=== PATIENT | female | born 1950 | race Caucasian/White ===

== ENCOUNTER → 2019-07-01 14:05 | Outpatient (BNVA) | payer MEDICARE, MEDICAID, SELFPAY | PROVIDERS: Family Provider Family Medicine; PCP Family Medicine; Visit Provider Orthopaedic Surgery | DX: S62.307A Unspecified fracture of fifth metacarpal bone, left hand, initial encounter for closed fracture (principal); X58.XXXA Exposure to other specified factors, initial encounter | CPT/HCPCS: 73130 ==

== ENCOUNTER 2019-07-20 10:11 | Outpatient (CLI) | payer MEDICARE, MEDICAID, SELFPAY ==
--- NOTE | 2019-07-20 10:22 | CT_ITS ---
WS: [id number] CT LUMBAR SPINE TECHNIQUE: Noncontrast CT of the lumbar spine with coronal and sagittal reformatted images. CLINICAL INFORMATION: LUMBAR COMPRESSION FRACTURE, SEQUELA COMPARISON: June 21, 2019 DLP: 1624.[address] scans at [facility] use at least one of these dose optimization techniques: automat ed exposure control; mA and/or kV adjustment per patient size (includes targeted exams where dose is matched to clinical indication); or iterative reconstruction. FINDINGS: Mild lumbar curve. Again seen is the comminuted burst fracture L1 vertebral body with fragmentation i nvolving superior endplate. Mild retropulsion of the posterior superior cortex with moderate central canal stenosis unchanged. Compression at L1 is stable since June 21, 2019 with loss of approximat sarkis 30% vertebral body height. Again seen is extension of the L1 fracture into the left pedicle and posterior elements. Extension i nto the midline lamina and right L1 facet. Stable nondisplaced fracture T12 spinous process. Nondispl aced fractures left 12th rib. Nondisplaced fracture left L1 transverse process. Mild central canal stenosis L3-4. Mild to moderate central canal stenosis L4-L5 and L5-S1 due to disc bulging with facet arthropathy and ligamentum flavum hypertrophy. Stable shallow left pericentral pr otrusion L5-S1 impinges the left S1 nerve root. CT/CT lumbar spine wo con* [id number] IMPRESSION: 1. Again seen is the comminuted burst fracture L1 vertebral body with retropul al posterior superior cortex. Mild to moderate central canal stenosis is unch anged. 2. Loss of approximately 30% vertebral body height at L1 is unchanged. 3. Stable appearing extension of the L1 fracture to the left pedicle and poste rior elements. Unchanged extension into the midline lamina and right L1 facet. 4. Nondisplaced fracture midline T12 spinous process. Nondisplaced fractures l eft 12th rib and bilateral L1 transverse processes with callus formation. 5. Unchanged mild to moderate central canal stenosis L3-L5 due to mild disc bu lging with facet arthropathy and ligament flavum hypertrophy.
== END 2019-07-20 10:12 | disposition home or self-care (01) ==
PROVIDERS: Family Provider Family Medicine; PCP Family Medicine; Visit Provider Licensed Practical Nurse
DX: S32.000A Wedge compression fracture of unspecified lumbar vertebra, initial encounter for closed fracture (principal); S22.089A Unspecified fracture of T11-T12 vertebra, initial encounter for closed fracture; X58.XXXA Exposure to other specified factors, initial encounter; M48.061 Spinal stenosis, lumbar region without neurogenic claudication
CPT/HCPCS: 72131

== ENCOUNTER → 2019-08-03 14:12 | Outpatient (BNVA) | payer MEDICARE, MEDICAID, SELFPAY | PROVIDERS: Family Provider Family Medicine; PCP Family Medicine; Visit Provider Orthopaedic Surgery | DX: S62.397A Other fracture of fifth metacarpal bone, left hand, initial encounter for closed fracture (principal); X58.XXXA Exposure to other specified factors, initial encounter | CPT/HCPCS: 73130 ==

== ENCOUNTER 2019-08-23 12:51 | Outpatient (CLI) | payer MEDICARE, MEDICAID, SELFPAY ==
--- NOTE | 2019-08-23 13:00 | CT_ITS ---
WS: [id number] CT LUMBAR SPINE, noncontrast. HISTORY: Lumbar fracture TECHNIQUE: Contiguous 2.5 mm axial imaging are performed. Sagittal and coronal reformats are submitte d and reviewed. All CT scans at [facility] use at least one of these dose optimization te chniques: automated exposure control; mA and/or kV adjustment per patient size (includes targeted exa ms where dose is matched to clinical indication); or iterative reconstruction. IV contrast: None DLP: 2055.87 mGycm COMPARISON: 07/20/2019 Stable L1 burst fracture with 5.5 mm of retropulsion of posterior superior segment. Mild flattening a nd contact on the ventral thecal sac. Slightly greater on the RIGHT. There is an associated osteophyt e and LEFT paracentral disc protrusion. 30% loss of height of the complex fractures of the L1 vertebr al body and extension into the LEFT pedicle and posterior elements without displacement. Near complet e healing of the midline lamina fracture on the RIGHT and the RIGHT L1 facet fracture. Very difficult to visualize at this time. There is a nondisplaced fracture involving the T12 spinous process which is nearly completely healed. Healing nondisplaced LEFT medial 12th rib fracture. Healing fractures in volving the L1 transverse processes. No new fractures or change in alignment or adverse finding since the prior study. Mild central stenos is at L3-4 is unchanged. Mild to moderate central stenosis at L4-5 and L5-S1 due to disc disease and facet arthropathy and ligamentum flavum hypertrophy. LEFT paracentral disc protrusion at L5-S1 is sta ble with mild encroachment upon the ventral thecal sac and LEFT S1 nerve root. Mild atherosclerosis aorta. CT/CT lumbar spine wo con* [id number] IMPRESSION: 1. Healing burst fracture of L1 with stable 5.5 mm retropulsion of posterior s uperior endplate. 2. 30% L1 burst fracture with mild to moderate central stenosis is unchanged. 3. Healing fractures are again identified involving the T12 spinous process, L 1 LEFT pedicle and posterior elements, LEFT 12th rib and bilateral L1 transvers e process fractures.
== END 2019-08-23 12:52 | disposition home or self-care (01) ==
LOC: RADWPI 13:01
PROVIDERS: Family Provider Family Medicine; PCP Family Medicine; Visit Provider Licensed Practical Nurse
DX: S32.000G Wedge compression fracture of unspecified lumbar vertebra, subsequent encounter for fracture with delayed healing (principal); X58.XXXD Exposure to other specified factors, subsequent encounter; I70.0 Atherosclerosis of aorta
CPT/HCPCS: 72131

== ENCOUNTER 2019-09-02 12:14 | Emergency (ER) | payer MEDICARE, MEDICAID, SELFPAY ==
[2019-09-02 12:25] VITALS: BP 122/73; PULSE 77; RESP 14; TEMP 36.7; O2SAT 96; BMI 25.5
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
[2019-09-02] MEDS: sodium chloride 0.9% 1,000 ML 100 ML IV (12:53)
[2019-09-02] MEDS: ondansetron 2 mg/ML SDV 2 mL 4 MG IVP (12:53)
[2019-09-02 13:06] LABS: Basophils % 0.5 %; Eosinophils # 0.1 10^3/uL (0.0-0.8); Eosinophils % 2.2 %; Hematocrit 40.6 % (37.0-47.0); Hemoglobin 13.1 g/dL (11.5-15.3); Lymphocytes # 1.3 10^3/uL (0.8-4.8); Lymphocytes % 23.3 %; Mean Corpuscular HGB Conc 32.3 g/dL (30.0-36.0); Mean Corpuscular Hemoglobin 26.5 pg (28.0-34.0); Mean Corpuscular Volume 82.2 fL (81-99); Mean Platelet Volume 10.2 fL (7.4-10.4); Monocytes # 0.4 10^3/uL (0.2-0.9); Monocytes % 6.4 %; Neutrophils # 3.7 10^3/uL (1.8-7.7); Neutrophils % 67.2 %; Nucleated Red Blood Cells % 0 %; Platelet Count 201 10^3/cmm (130-400); Red Blood Count 4.94 10^6/uL (4.1-5.3); Red Cell Distribution Width 12.7 % (12.1-15.1); White Blood Count 5.5 10^3/uL (4.0-10.0)
[2019-09-02 13:19] LABS: Alanine Aminotransferase 11 U/L (0-33); Albumin Level 4.2 g/dL (3.5-5.2); Alkaline Phosphatase 67 IU/L (35-105); Anion Gap 14.2 (5-19); Aspartate Amino Transferase 17 U/L (0-32); Blood Urea Nitrogen 13 mg/dL (8-23); Calcium 10.1 mg/dL (8.5-10.5); Carbon Dioxide 28 mmol/L (22-29); Chloride 102 mmol/L (98-107); Globulin 2.8 g/dL (1.3-4.6); Glomerular Filtration Rate 83.2 mL/min (90-130); Glucose 140 mg/dL (65-115); Osmolality Calculated 288 mOsm/kg (285-295); Potassium 4.2 mmol/L (3.5-5.1); Sodium 140 mmol/L (136-145); Total Bilirubin 0.4 mg/dL (0.15-1.2)
[2019-09-02 13:32] LABS: Influenza A by IFA Negative (Negative); Influenza B by IFA Negative (Negative)
[2019-09-02 13:38] VITALS: BP 146/73; PULSE 70; RESP 14; O2SAT 94
[2019-09-02 13:58] LABS: Bilirubin Urine Neg (NEGATIVE); Blood Urine Neg (Negative); Glucose Urine UA Norm (Normal); Ketones Urine Negative (Negative); Leukocyte Esterase Urine Negative (Negative); Nitrate Urine Negative (Negative); Protein Urine Neg (Negative); Urine Appearance SL Hazy (CLEAR); Urine Color Yellow (Yellow); Urobilinogen Urine Norm (Negative); pH Urine 7 (5-7)
[2019-09-02 14:04] LABS: Amorphous Sediment Urine 1+; Bacteria Urine TRACE; Mucus Urine TRACE; RBC Urine RARE /hpf (0-2); Squamous Epithelial Cell Urine 0-4 (0-5); WBC Urine 0-4 /hpf (0-5)
[2019-09-02 14:05] LABS: Add Urine Culture? No; Hyaline Casts Urine 0-4
--- NOTE | 2019-09-02 15:36 | PC.NURSE ---
This nurse spoke with [facility] ([phone]) to set up patient ride. Patient is very agitated and ready to be home. [facility] gave 3 hour window for arrival for transport. This was explained to patient at this time. Reservation #: [id number] Ride Assit #: [phone]
[2019-09-02 16:48] VITALS: BP 128/74; PULSE 76; RESP 16; TEMP 36.5; O2SAT 96
== END 2019-09-02 16:45 | disposition home or self-care (01) ==
PROVIDERS: Emergency Provider Emergency Medicine; Family Provider Family Medicine; PCP Family Medicine
DX: R11.10 Vomiting, unspecified (principal)
CPT/HCPCS: 12345; 36415; 80053; 81001; 85025; 87804; 96361; 96374; 96375; 99283; 99284; A9270; J2405; J7030

== ENCOUNTER 2019-11-10 13:20 | Outpatient (CLI) | payer MEDICARE, MEDICAID, SELFPAY ==
--- NOTE | 2019-11-10 14:00 | CT_ITS ---
WS: [id number] CT LUMBAR SPINE, noncontrast. HISTORY: T12/L1 fracture TECHNIQUE: Contiguous 2.5 mm axial imaging are performed. Sagittal and coronal reformats are submitte d and reviewed. All CT scans at [facility] use at least one of these dose optimization te chniques: automated exposure control; mA and/or kV adjustment per patient size (includes targeted exa ms where dose is matched to clinical indication); or iterative reconstruction. IV contrast: None DLP: 2008.92 mGycm COMPARISON: 08/23/2019 Again noted is the comminuted burst fracture of L1 with retropulsion of the posterior superior endpla te by 4.7 mm. Comminuted fracture extends to the anterior posterior cortex of vertebral body. Approxi mately 30% loss of height. No progression. There is mild encroachment of vertebral body upon the vent ral thecal sac, greatest to the LEFT of midline with no progression. Healing fracture spinous process of T12 is not well visualized and a longer period sclerosis involving the L1 lamina from a healing f racture. L1 LEFT transverse process fractures essentially healed. Healed fracture involving the 12th LEFT rib. Mild central stenosis at L3-4. Moderate central stenosis at L4-5 and L5-S1 due to disc bulging and fa cet and ligamentum flavum arthropathy. Small LEFT paracentral disc protrusion at L5-S1 with encroachm ent upon the LEFT S1 nerve root. Similar to the prior study. Atherosclerosis aorta. CT/CT lumbar spine wo con* [id number] IMPRESSION: 1. L1 burst fracture of 30% with 4.7 mm retropulsion of posterior superior end plate. Stable since the prior study with no progression. 2. L1 fragment with mild encroachment upon the thecal sac similar to the prior study. 3. Multiple previously described fractures are poorly visualized now due to he aling. The T12 spinous process fracture, LEFT 12th rib, L1 LEFT transverse proc ess fracture and the LEFT L1 posterior element fractures are poorly visualized now consistent with healing.
== END 2019-11-10 13:21 | disposition home or self-care (01) ==
LOC: RADWPI 13:26
PROVIDERS: Family Provider Family Medicine; PCP Family Medicine; Visit Provider Licensed Practical Nurse
DX: S32.000A Wedge compression fracture of unspecified lumbar vertebra, initial encounter for closed fracture (principal); S32.011A Stable burst fracture of first lumbar vertebra, initial encounter for closed fracture; X58.XXXA Exposure to other specified factors, initial encounter
CPT/HCPCS: 72131

== ENCOUNTER 2019-12-03 16:00 | Outpatient (CLI) | payer MEDICARE, MEDICAID, SELFPAY ==
[2019-12-03 16:11] LABS: Add Urine Microscopic? NO
[2019-12-03 16:25] LABS: Bilirubin Urine Neg (NEGATIVE); Blood Urine Neg (Negative); Glucose Urine UA Norm (Normal); Ketones Urine Negative (Negative); Leukocyte Esterase Urine Negative (Negative); Nitrate Urine Negative (Negative); Protein Urine Neg (Negative); Specific Gravity, Urine 1.025 (1.005-1.030); Urine Appearance Clear (CLEAR); Urine Color Yellow (Yellow); Urobilinogen Urine 1 mg/dL (Negative); pH Urine 5 (5-7)
[2019-12-03 16:34] LABS: Basophils % 0.6 %; Eosinophils # 0.2 10^3/uL (0.0-0.8); Eosinophils % 2.5 %; Hematocrit 43.4 % (37.0-47.0); Lymphocytes # 1.5 10^3/uL (0.8-4.8); Lymphocytes % 23.5 %; Mean Corpuscular HGB Conc 32.3 g/dL (30.0-36.0); Mean Corpuscular Volume 86.8 fL (81-99); Mean Platelet Volume 10.8 fL (7.4-10.4); Monocytes # 0.3 10^3/uL (0.2-0.9); Monocytes % 5.2 %; Neutrophils # 4.3 10^3/uL (1.8-7.7); Nucleated Red Blood Cells % 0 %; Platelet Count 218 10^3/cmm (130-400); Red Cell Distribution Width 12.7 % (12.1-15.1); White Blood Count 6.4 10^3/uL (4.0-10.0)
[2019-12-03 16:36] LABS: Creatinine Urine, Random 220 mg/dL (28-217)
[2019-12-03 16:42] LABS: Alanine Aminotransferase 12 U/L (0-33); Albumin Level 4.8 g/dL (3.5-5.2); Alkaline Phosphatase 63 IU/L (35-105); Anion Gap 17.3 (5-19); Aspartate Amino Transferase 20 U/L (0-32); Blood Urea Nitrogen 15 mg/dL (8-23); Calcium 10.6 mg/dL (8.5-10.5); Carbon Dioxide 27 mmol/L (22-29); Chloride 102 mmol/L (98-107); Chol HDL Ratio 3.63 mg/dL (0.0-4.40); Cholesterol 189 mg/dL (0-200); Globulin 2.1 g/dL (1.3-4.6); Glomerular Filtration Rate 62.3 mL/min (90-130); Glucose 131 mg/dL (65-115); HDL Cholesterol 52 mg/dL (60-100); LDL Cholesterol Calculated 111 mg/dL (50-129); LDL HDL Ratio 2.13 RATIO (0.00-3.22); Osmolality Calculated 292 mOsm/kg (285-295); Potassium 4.3 mmol/L (3.5-5.1); Sodium 142 mmol/L (136-145); Thyroid Stimulating Hormone 2.02 uIU/mL (0.27-4.20); Total Bilirubin 0.4 mg/dL (0.15-1.2); Total Protein 6.9 g/dL (6.6-8.7); Triglycerides 128 mg/dL (0-150)
[2019-12-03 16:59] LABS: Microalbum Creatinine Ratio Ur 5 mg/dL (0-20); Microalbumin Random Urine 1 ug/dL (0-20)
[2019-12-03 17:07] LABS: Estmated Average Glucose 134; Hemoglobin A1C 6.3 % (4.0-6.0)
[2019-12-03 18:53] LABS: 25 Hydroxy Vitamin D 73 ng/mL (30-100); Vitamin B12 733 pg/mL (232-1245)
== END 2019-12-03 16:01 | disposition home or self-care (01) ==
LOC: LAB 16:06
PROVIDERS: PCP Family Medicine; Visit Provider Family Medicine
DX: M48.56XA Collapsed vertebra, not elsewhere classified, lumbar region, initial encounter for fracture (principal); Z79.899 Other long term (current) drug therapy
CPT/HCPCS: 80053; 80061; 81003; 82044; 82306; 82607; 83036; 84443; 85025

== ENCOUNTER 2021-02-08 11:13 | Outpatient (CLI) | payer MEDICARE, MEDICAID, SELFPAY ==
--- NOTE | 2021-02-08 11:31 | CT_ITS ---
WS: [id number] CT LUMBAR SPINE TECHNIQUE: Noncontrast CT of the lumbar spine with coronal and sagittal reformatted images. CLINICAL INFORMATION: CLOSED BURST FRACTURE OF LUMBAR VERTEBRA WITH DELAYED HEALIN COMPARISON: CT 11/09 DLP: 2102.[address] scans at [facility] use at least one of these dose optimization techniques: automat ed exposure control; mA and/or kV adjustment per patient size (includes targeted exams where dose is matched to clinical indication); or iterative reconstruction. FINDINGS: Mild lumbar curve. No acute compression. Chronic compression fracture L1 vertebral body with loss of approximately 30% vertebral body height unchanged from previous. Mild retropulsion posterior superior cortex with mild to moderate central canal stenosis unchanged. Impingement on the subarticular reces s bilaterally. Mild to moderate central canal stenosis L3-4, L4-L5, and L5-S1 unchanged due to disc bulging with fac et arthropathy and ligament flavum hypertrophy. Shallow central protrusion L5-S1 eccentric to the left impinges the traversing left S1 nerve root unc hanged. Moderate to advanced facet arthropathy L3-L5 worse L4-5. CT/CT lumbar spine wo con* [id number] IMPRESSION: 1. Stable L1 compression fracture with loss of approximately 30% vertebral bod y height. Mild retropulsion of the posterior superior cortex with mild to moder ate central canal stenosis unchanged. No progression. 2. No new compression fractures. 3. No other significant changes from previous.
== END 2021-02-08 11:14 | disposition home or self-care (01) ==
PROVIDERS: PCP Family Medicine; Visit Provider Family Medicine
DX: M54.5 Low back pain (principal); S32.019G Unspecified fracture of first lumbar vertebra, subsequent encounter for fracture with delayed healing; V89.2XXD Person injured in unspecified motor-vehicle accident, traffic, subsequent encounter; X58.XXXD Exposure to other specified factors, subsequent encounter
CPT/HCPCS: 72131

== ENCOUNTER 2021-05-07 15:47 | Emergency (ER) | payer MEDICARE, MEDICAID, SELFPAY ==
[2021-05-07 15:54] VITALS: BP 148/90; PULSE 90; RESP 16; TEMP 36.7; O2SAT 96; BMI 26.4
--- NOTE | 2021-05-07 17:52 | ED_ITS ---
HPI - Headache General: Chief Complaint: Headache Stated Complaint: migraine, n/v Time Seen by Provider: 05/07/21 17:51 History of Present Illness: HPI Narrative: Ms. Duvall is a 70-year-old lady with significant past medical history of migraines who presents emergency department due to headache. Symptom onset was approximately 5 days ago. She mostly reports right neck headache that radiates towards the head. It is associated with photophobia, sonophobia, nausea, and vomiting. She tried home therapies and initially had mild improvement however then it worsens. Intensity is moderate to severe. Course has been worsening. She has very infrequent headaches last one being about 5 years ago. She otherwise denies changes in health or medications. No other specific known provoking, exacerbating, or relieving factors Review of Systems General: Reports: 10 or more systems reviewed and unremarkable except in HPI and below PFSH ED PFSH: Medical History Compression fracture of lumbar vertebra with routine healing Intervertebral disc disorder with radiculopathy of lumbar region Surgical History History of cholecystectomy (~2007) History of tonsillectomy Family History Sister Hypertension Diabetes Heart disease Hypercholesteremia Brother Hypertension Heart disease Hypercholesteremia Social History Smoking and tobacco status: never smoked Alcohol intake: never Household members: none Marital status: Current occupational status: retired History of recent travel: No Physical Exam Narrative: EXAM NARRATIVE: GENERAL/CONSTITUTIONAL -mildly ill-appearing. No acute distress. Eyes - PERRL, no conjunctival injection ENMT - Atraumatic external nose and ears. Moist mucous membranes NECK - supple. trachea midline CARDIOVASCULAR - regular rate and rhythm. RESPIRATORY -clear to auscultation bilaterally. ABDOMEN/GI - Nontender/Nondistended. MSK - Extremities without obvious deformity or tenderness to palpation SKIN - Warm, Dry NEURO - alert and appropriately oriented. No focal neurologic deficits. Moves all extremities equally. Course ED course: - Patient was seen and evaluated by me at bedside - Patient placed on cardiac monitors, IV access obtained - Initial evaluation notable for exam as noted above. - Patient has extensive list of allergies which makes treatment of headache challenging. Fluids, magnesium, Reglan ordered. - Labs notable for No significant finding is a trigger for headache - Given age and infrequent nature of headaches imaging felt to be warranted. Imaging notable for Negative head CT - Upon serial reexamination after treatment the patient was Improved with resolution of headache - Based on patient history, evaluation, labs, and imaging as interpreted the most likely cause of the patient's condition is Headache disorder with symptom description consistent with migraine - The results of ED evaluation were discussed with the patient including prescriptions and/or symptomatic cares (if applicable) including appropriate and responsible use, followup plan, and return precautions. The patient verbalized understanding and felt safe for discharge. - Patient discharged in satisfactory condition. Vital Signs: Vital signs: Vital Signs Temperature 98.2 F 05/07/21 18:58 Pulse Rate 79 05/07/21 19:26 Respiratory Rate 17 05/07/21 19:26 Blood Pressure 140/66 05/07/21 20:44 Pulse Oximetry 97 05/07/21 20:44 MDM - Headache Medical Records: Attestation: I reviewed the patient's medical records. Lab Data: Attestation: I reviewed the patient's lab results. Discharge Plan Discharge Patient Disposition: Home Clinical Impression: Acute nonintractable headache Condition: Stable Prescriptions: No Action epinephrine [EpiPen 2-Frank] 0.3 mg/0.3 mL auto-injector 0.3 mg IM ONCE PRNRF: 0 aspirin 81 mg tablet,delayed release (DR/EC) 81 mg PO QDAY RF: 0 Restasis MultiDose 0.05 % drops 1 drop ophthalmic (eye) Q12H RF: 0 carboxymethylcellulose sodium 1 % dropperette 1 drop ophthalmic (eye) BID RF: 0 olopatadine [Patanol] 0.1 % drops 1 drop ophthalmic (eye) BID RF: 0 latanoprost 0.005 % drops, emulsion 1 drop ophthalmic (eye) QDAY RF: 0 coenzyme Q10 [CoQ-10] 100 mg capsule 100 mg PO QDAY RF: 0 tizanidine [Zanaflex] 2 mg capsule 2 mg PO Q8H PRNRF: 0 fenofibrate nanocrystallized [Tricor] 48 mg tablet 48 mg PO QDAY RF: 0 ranitidine HCl [Zantac] 150 mg tablet 150 mg PO BID RF: 0 omega-3 fatty acids 1,000 mg capsule 1,000 mg PO QDAY RF: 0 multivitamin with minerals [Hair,Skin and Nails] Tablet 1 tab PO QDAY RF: 0 docusate sodium [Colace] 100 mg capsule 100 mg PO QDAY PRNRF: 0 polyethylene glycol 3350 [Miralax] 17 gram/dose powder 17 gm PO QDAY PRNRF: 0 menthol-zinc oxide 0.44-20 % ointment TOPICAL QDAY PRNRF: 0 oxycodone 5 mg tablet 5 mg PO Q6H PRNRF: 0 Zofran 4 mg tablet 4 mg PO Q6H PRN (Reason: nausea and vomiting) Qty: 20 RF: 0 Discharge Orders: Discharge ED (Routine); Ordered 05/07/21 Ordered By: Patel Loyola Referrals: Eran Johnston [Primary Care Provider] - Discharge Diet: Usual diet Discharge Activity: Resume usual activity Patient Instructions: Migraine Headache (ED), Acute Headache (ED) Activity Restrictions/Additional Instructions: Thank you for visiting the emergency department. You were seen and evaluated for headache. The exact cause of your symptoms is unclear though likely related to your underlying headache disorder. We are pleased that your improvement with symptomatic treatment. Please follow-up with your primary care provider. Please return to the emergency department for recurrence of symptoms or anything else that you are concerned about and feel needs emergency department evaluation. Coding Level of Care Code ED Collar Folder Operator for Siena Baird
--- NOTE | 2021-05-07 18:09 | CTR_ITS ---
PROCEDURE INFORMATION: Exam: CT Head Without Contrast Exam date and time: 05/07/2021 6:09 PM Age: 70 years old Clinical indication: Pain; Headache; Migraine TECHNIQUE: Imaging protocol: Computed tomography of the head without contrast. Radiation optimization: All CT scans at this facility use at least one of these dose optimization techniques: automated exposure control; mA and/or kV adjustment per patient size (includes targeted exams where dose is matched to clinical indication); or iterative reconstruction. COMPARISON: CT head wo con* [id number] 05/05/2019 1:44 PM RADIATION DOSE METRICS: Total DLP (mGy-cm): 798.44 FINDINGS: Brain: There is moderate cerebral atrophy. No hemorrhage. Unremarkable white matter. No mass effect. Cerebral ventricles: No ventriculomegaly. Paranasal sinuses: Visualized sinuses are unremarkable. No fluid levels. Mastoid air cells: Visualized mastoid air cells are well aerated. Bones/joints: Unremarkable. No acute fracture. Soft tissues: Unremarkable. CT/CT head wo con* [id number] IMPRESSION: No acute intracranial abnormality. Radiation Dose CTDIVOL = (mGy): DLP = 798.44 (mGy-cm)
[2021-05-07 18:58] VITALS: BP 135/84; PULSE 83; RESP 18; TEMP 36.8; O2SAT 96
[2021-05-07 19:26] VITALS: BP 135/84; PULSE 79; RESP 17; O2SAT 97
[2021-05-07] MEDS: metoclopramide 5 mg/mL SDV 2 mL 10 MG IVP (19:37)
[2021-05-07] MEDS: sodium chloride 0.9% 1,000 ML 999 ML IV (19:39)
[2021-05-07] MEDS: magnesium sulfate premix 2 GM/50 ML PIGGYBACK IV (19:44)
[2021-05-07 20:44] VITALS: BP 140/66; O2SAT 97
== END 2021-05-07 23:12 | disposition home or self-care (01) ==
PROVIDERS: Emergency Provider Emergency Medicine; PCP Family Medicine
DX: R51.9 Headache, unspecified (principal); Z79.82 Long term (current) use of aspirin
CPT/HCPCS: 70450; 96365; 96375; 99284; J2765; J3475; J7030

== ENCOUNTER 2022-03-21 12:48 | Outpatient (CLI) | payer MEDICARE, MEDICAID, SELFPAY ==
--- NOTE | 2022-03-21 13:00 | MR_ITS ---
WS: [id number] MRI HEAD WITHOUT CONTRAST TECHNIQUE: Sagittal T1, T2 axial, T2 axial FLAIR, axial and coronal T1 images, axial susceptibility w eighted imaging, axial diffusion weighted images, and coronal T2 images were obtained. CLINICAL INFORMATION: G43.909 - Migraine, unspecified, not intractable, without... COMPARISON: CT May 07, 2021 FINDINGS: No evidence of restricted diffusion to suggest acute ischemia. Ventricular system and basal cisterns are patent. Mild small vessel changes. Mild parenchymal volume loss. Normal posterior fossa. Normal v ascular flow voids at the skull base. No extra-axial fluid collections. No evidence of mass or mass e ffect. Paranasal sinuses and mastoid air cells are well aerated. No hemosiderin on the susceptibly we ighted images. Normal optic chiasm and pituitary infundibulum. Temporal lobes and hippocampal formations are normal in appearance. No other suspicious findings. MR/MR head wo con* [id number] IMPRESSION: 1. No evidence of restricted diffusion to suggest acute ischemia. 2. Mild small vessel changes with mild parenchymal volume loss. Paranasal sinu ses and mastoid air cells well aerated. 3. No hemosiderin on susceptibly weighted images. 4. Normal optic chiasm and pituitary infundibulum. 5. Temporal lobes and hippocampal formations are normal in appearance.
== END 2022-03-21 12:49 | disposition home or self-care (01) ==
LOC: RAD 12:48
PROVIDERS: PCP Family Medicine; Visit Provider Specialist
DX: G43.909 Migraine, unspecified, not intractable, without status migrainosus (principal)
CPT/HCPCS: 70551

== ENCOUNTER → 2022-03-26 14:15 | Outpatient (BNVA) | payer MEDICARE, MEDICAID, SELFPAY | PROVIDERS: PCP Family Medicine; Visit Provider Specialist | DX: G37.9 Demyelinating disease of central nervous system, unspecified (principal); G44.309 Post-traumatic headache, unspecified, not intractable; R41.89 Other symptoms and signs involving cognitive functions and awareness; R26.89 Other abnormalities of gait and mobility; S13.4XXS Sprain of ligaments of cervical spine, sequela; V49.40XS Driver injured in collision with unspecified motor vehicles in traffic accident, sequela | CPT/HCPCS: 99214 ==